=== PATIENT | male | born 1990 | race Caucasian/White ===

== ENCOUNTER 2017-11-15 23:25 | Inpatient (IN) | payer OTHER ==
[~2017-11-15] VITALS: Ht 167.6 cm; Wt 92.7 kg
[2017-11-15 23:28] VITALS: BP 140/90
--- NOTE | 2017-11-15 23:34 | NUR ---
PT TAKEN TO CHAIR D
--- NOTE | 2017-11-15 23:41 | NUR ---
26 Y/O M W/C/O EPIGASTRIC PAIN/NAUSEA/VOMITING X THIS AM. NO MED HX. PT STATES TOOK DICYCLOMINE 20MG X 2 AT 2000 TONIGHT FOR ABD PAIN BUT NO RELIEF.
[2017-11-16 00:28] LABS: BASOPHILS # (AUTO) 0.3 K/uL (0.00-0.22); BASOPHILS % (AUTO) 3.1 % (0.0-2.0); EOSINOPHILS # (AUTO) 0.1 K/uL (0-0.4); EOSINOPHILS % (AUTO) 1.3 % (0.0-4.0); HEMATOCRIT 39.7 % (36-52); HEMOGLOBIN 13.5 g/dL (12.0-18.0); LYMPHOCYTES # (AUTO) 1.3 K/uL (2.0-11.5); MEAN CORPUSCULAR HEMOGLOBIN 30 pg (27-31); MEAN CORPUSCULAR HGB CONC 34 g/dL (33-37); MEAN CORPUSCULAR VOLUME 87 fL (80-94); MONOCYTES # (AUTO) 0.5 K/uL (0.8-1.0); MONOCYTES % (AUTO) 4.6 % (1.7-9.3); NEUTROPHILS # (AUTO) 7.9 K/uL (1.8-7.7); PLATELET COUNT (AUTO) 234 K/uL (140-450); RED BLOOD CELL COUNT(AUTO) 4.56 MIL/uL (4.20-6.10); RED CELL DISTRIBUTION WIDTH 12.4 % (11.6-13.7); WHITE BLOOD COUNT (AUTO) 10.1 K/uL (4.8-10.8)
--- NOTE | 2017-11-16 00:36 | NUR ---
Dr. Fuller evaluating patient.
[2017-11-16 00:37] LABS: ANION GAP 15.5 (8-16); CARBON DIOXIDE 25.1 mmol/L (21-32); CREATININE 0.9 mg/dL (0.7-1.3); POTASSIUM 3.6 mmol/L (3.5-5.1)
[2017-11-16] MEDS ORDERED: DICYCLOMINE HCL LIQUID 10 MG/5 ML UDC PO ONE (00:40)
[2017-11-16] MEDS ORDERED: ALUMINUM HYD/MAG/SIMETHICONE 30 ML UDC PO ONE (00:40)
[2017-11-16] MEDS ORDERED: LIDOCAINE VISCOUS 2% 20 ML UDC PO ONE (00:40)
[2017-11-16] MEDS ORDERED: ONDANSETRON 4 MG ODT PO ONE (00:40)
[2017-11-16 00:43] LABS: ALBUMIN 4.2 g/dL (3.4-5.0); TOTAL BILIRUBIN 0.6 mg/dL (0.0-1.0)
--- NOTE | 2017-11-16 00:53 | NUR ---
PT MOVED TO BED 4
[2017-11-16] MEDS ORDERED: MORPHINE SULFATE 4 MG/ML SYR IVP ONE (01:05)
[2017-11-16] MEDS ORDERED: NACL 0.9% 1,000 ML IV ONE (01:05)
[2017-11-16] MEDS ORDERED: NACL 0.9% 1,000 ML IV SCH (01:18)
[2017-11-16] MEDS ORDERED: MORPHINE SULFATE 4 MG/ML SYR ONE (01:19)
[2017-11-16] MEDS ORDERED: MORPHINE SULFATE 4 MG/ML SYR IVP PRN (01:20)
[2017-11-16] MEDS ORDERED: ONDANSETRON 4 MG/2 ML VIAL IVP PRN (01:20)
[2017-11-16] MEDS ORDERED: MORPHINE SULFATE 2 MG/ML SYR IVP PRN (01:20)
[2017-11-16] MEDS ORDERED: ACETAMINOPHEN 325 MG TAB PO PRN (01:20)
[2017-11-16] MEDS ORDERED: BEN10 PO (01:23)
--- NOTE | 2017-11-16 01:46 | NUR ---
Patient will be admitted to care of DR DAWKINS. Admited to MS . Will go to room 122B. Belongings list completed. Report to FLIP PAGAN.
[2017-11-16 02:02] LABS: BARBITURATE, URINE NEG. ng/ml (NEG <=200); BENZODIAZEPINE, URINE NEG. ng/mL (NEG <=200); CANNABINOID, URINE NEG. ng/mL (NEG <=50); COCAINE, URINE NEG. ng/mL (NEG <=300); OPIATE, URINE NEG. ng/mL (NEG <=2000); PHENCYCLIDINE SCREEN,URINE NEG. ng/mL (NEG <=25)
--- NOTE | 2017-11-16 02:06 | NUR ---
ADMITTED PATIENT TO THE MED-SURG UNIT, PATIENT AWAKE ALERT ORIENTED X4, NO S/S OF DISTRESS NOTED, RESPIRATION EVEN AND UNLABORED, VITAL SIGNS STABLE, IV PATENT AND INTACT. PLAN OF CARE DISCUSSED, PATIENT VERBALIZED UNDERSTANDING, CALL LIGHT WITHIN REACH, SAFETY MEASURE ENSURED, WILL CONTINUE TO MONITOR.
[2017-11-16 02:34] VITALS: BP 121/54
--- NOTE | 2017-11-16 04:04 | NUR ---
PATIENT IS SLEEPING, NO S/S OF DISTRESS NOTED, RESPIRATION EVEN AND UNLABORED, CALL LIGHT WITHIN REACH, SAFETY MEASURE ENSURED, WILL CONTINUE TO MONITOR.
--- NOTE | 2017-11-16 06:41 | NUR ---
PATIENT HAS BEEN SCREENED AND CATEGORIZED LOW NUTRITION RISK. PATIENT WILL BE SEEN WITHIN 7 DAYS OF ADMISSION. 11/22/17 LIZETTE RODRIGEZ MS, RDN
--- NOTE | 2017-11-16 07:03 | NUR ---
ENDORSED PLAN OF CARE TO DAY SHIFT RN, PATIENT IS IN STABLE CONDITION. NO S/S OF DISTRESS.
--- NOTE | 2017-11-16 07:05 | NUR ---
RECEIVED REPORT FROM NIGHT RN. PT RESTING IN BED. AAOX4. NO S/S OF ACUTE DISTRESS. PT DENIES PAIN. IV SITE PATENT AND INTACT. CALL LIGHT WITHIN REACH. SAFETY MEASURES ENSURED. WILL CONTINUE TO MONITOR.
[2017-11-16 07:43] VITALS: BP 128/73
[2017-11-16] MEDS ORDERED: ENOXAPARIN 40 MG/0.4 ML SYR SUBQ SCH (09:00)
[2017-11-16] MEDS ORDERED: FAMOTIDINE 20 MG/2 ML VIAL IVP SCH (09:00)
[2017-11-16] MEDS ORDERED: PANT40EC PO (09:15)
--- NOTE | 2017-11-16 10:07 | NUR ---
PT SLEEPING IN BED. NO S/S OF ACUTE DISTRESS. WILL CONTINUE TO MONITOR.
--- NOTE | 2017-11-16 10:46 | NUR ---
CM NOTE INITIAL REVIEW FAXED TO [facility] [phone] [facility] # [phone]
--- NOTE | 2017-11-16 12:20 | NUR ---
DISCHARGE TO HOME WITH DC INSTRUCTION AND PRESCRIPTION GIVEN AND VERBALIZED UNDERSTANDING. IV REMOVED.
== END 2017-11-16 12:30 | disposition home or self-care (01) | DRG 282 ==
LOC: MED 23:25 → MTU 11-16 01:18
PROVIDERS: ADMIT Internal Medicine; ATTEND Internal Medicine
DX: K85.90 Acute pancreatitis without necrosis or infection, unspecified (principal); F10.10 Alcohol abuse, uncomplicated; K21.9 Gastro-esophageal reflux disease without esophagitis
CPT/HCPCS: 36415; 80053; 80305; 83690; 85025; 87081; 96374; 99285; G0482; J1650; J2270; J3490; J7030; S0119

== ENCOUNTER 2018-01-05 10:28 | Inpatient (IN) | payer OTHER ==
[~2018-01-05] VITALS: Ht 177.8 cm; Wt 90.3 kg
--- NOTE | 2018-01-05 00:30 | NUR ---
PT GIVEN ZOSYN PER ORDER RUNNING AT 100MLS PER HR. IV FLUSHED PT NO S/S OF INFILTRATION NOTED. 12 AM V/S T 97.9 P 77 R 18 B/P 108/42 02 97% ON RA. PT AROUSABLE TO VERBAL STIMULI HE DENIES ANY PAIN AT THIS TIME DRESSINGS INTACT RIGHT DRESSING HAS MINIMAL DRAINAGE NOTED. PT IS ABLE TO REPOSITION SELF AND DENIES PAIN AT THIS TIME.
[~2018-01-05 10:28] MED LIST: BEN10 PO; PANT40EC PO
[2018-01-05 10:36] VITALS: BP 143/75
--- NOTE | 2018-01-05 10:38 | NUR ---
PT TAKEN TO BED 7
--- NOTE | 2018-01-05 10:39 | NUR ---
Patient ambulated to bed 7. RN evaulating patient at bedside.
--- NOTE | 2018-01-05 10:40 | NUR ---
PATIENT PRESENTS TO ED WITH MID UPPER ABD PAIN X2 DAYS WITH N/V; HX PANCREATITIS . PATIENT STATES PAIN OF 10/10 AT THIS TIME; VSS; PATIENT POSITIONED FOR COMFORT; HOB ELEVATED; BEDRAILS UP X2; BED DOWN. ER MD MADE AWARE OF PT STATUS.
[2018-01-05] MEDS ORDERED: NACL 0.9% 1,000 ML IV ONE (10:45)
[2018-01-05] MEDS ORDERED: ONDANSETRON 4 MG/2 ML VIAL IVP ONE (10:45)
[2018-01-05] MEDS ORDERED: MORPHINE SULFATE 4 MG/ML SYR IVP ONE ×2 (10:45→12:45)
[2018-01-05 11:06] LABS: BASOPHILS % (AUTO) 0.2 % (0.0-2.0); EOSINOPHILS # (AUTO) 0.1 K/uL (0-0.4); EOSINOPHILS % (AUTO) 0.4 % (0.0-4.0); HEMATOCRIT 41.9 % (36-52); LYMPHOCYTES % (AUTO) 7.2 % (20.5-51.1); MEAN CORPUSCULAR HEMOGLOBIN 29 pg (27-31); MEAN CORPUSCULAR HGB CONC 33 g/dL (33-37); MEAN CORPUSCULAR VOLUME 86.2 fL (80-94); MONOCYTES # (AUTO) 0.7 K/uL (0.8-1.0); NEUTROPHILS # (AUTO) 12.6 K/uL (1.8-7.7); NEUTROPHILS % (AUTO) 87.2 % (42.2-75.2); PLATELET COUNT (AUTO) 222 K/uL (140-450); RED BLOOD CELL COUNT(AUTO) 4.86 MIL/uL (4.20-6.10); RED CELL DISTRIBUTION WIDTH 12.8 % (11.6-13.7); WHITE BLOOD COUNT (AUTO) 14.4 K/uL (4.8-10.8)
[2018-01-05 11:15] LABS: ANION GAP 12.4 (8-16); CARBON DIOXIDE 25.9 mmol/L (21-32); CREATININE 0.8 mg/dL (0.7-1.3); POTASSIUM 3.3 mmol/L (3.5-5.1)
[2018-01-05 11:20] LABS: ALBUMIN 4.4 g/dL (3.4-5.0); TOTAL BILIRUBIN 1.2 mg/dL (0.0-1.0)
[2018-01-05] MEDS ORDERED: MORPHINE SULFATE 4 MG/ML SYR ONE (12:42)
--- NOTE | 2018-01-05 13:21 | NUR ---
Patient taken to CT scan via gurney by [employer].
[2018-01-05] MEDS ORDERED: POTASSIUM CHL 20 MEQ/D5-1/2NS 1,000 ML IV ONE (16:25)
[2018-01-05] MEDS ORDERED: DEXT 5% / NACL 0.45% 1,000 ML IV SCH (16:36)
[2018-01-05] MEDS ORDERED: ONDANSETRON 4 MG/2 ML VIAL IVP PRN ×2 (16:40→18:40)
[2018-01-05] MEDS ORDERED: ACETAMINOPHEN 325 MG TAB PO PRN ×2 (16:40→19:45)
[2018-01-05] MEDS ORDERED: MORPHINE SULFATE 4 MG/ML SYR IVP PRN ×3 (16:40→19:45)
[2018-01-05 17:40] VITALS: BP 112/61
--- NOTE | 2018-01-05 17:40 | NUR ---
RECEIVED BEDSIDE REPORT FROM ER NURSE. PATIENT IS AWAKE, ALERT AND ORIENTEDX4. NO SIGNS OF RESP DISTRESS ON ROOM AIR. NO COMPLAINTS OF PAIN AT THIS TIME. VITALS ARE ALL WITHIN THE NORMAL LIMITS. L AC 20G INFUSING KCL AT 100ML/HR. IV IS CLEAN, DRY AND INTACT. NO COMPLAINTS AT THIS TIME. ALL ADMISSION QUESTIONS AND PAPERWORK SIGNED.
--- NOTE | 2018-01-05 17:40 | NUR ---
Patient will be admitted to care of DR. BAÑUELOS. Admited to MED/SURG. Will go to [id number]. Belongings list completed. Report to ANDER RN AT BEDSIDE, VSS.
--- NOTE | 2018-01-05 18:00 | NUR ---
GAVE BEDSIDE REPORT TO OR NURSES. NO CONSENT SIGNED BUT DR MCCRAY WILL TELL HIM THE RISKS AND BENEFITS AND ASSESS IF PATIENT WANTS WANTS SURGERY. WILL CONTINUE TO MONITOR PATIENT WHEN HE COMES BACK OR GIVE REPORT TO IT SENIOR ANALYST NURSE.
[2018-01-05] MEDS ORDERED: PIPERACILLIN/TAZOBACTAM 3.375 GM VIAL IV ONE ×2 (18:05→18:39)
[2018-01-05] MEDS ORDERED: ONDANSETRON 4 MG/2 ML VIAL ONE (18:05)
[2018-01-05] MEDS ORDERED: SUCCINYLCHOLINE CHLORIDE 200 MG/10 ML VIAL IVP ONE (18:05)
[2018-01-05] MEDS ORDERED: SEVOFLURANE 250 ML BTL INH ONE (18:05)
[2018-01-05] MEDS ORDERED: KETOROLAC 30 MG/ML VIAL ONE (18:05)
[2018-01-05] MEDS ORDERED: ROCURONIUM 50 MG/5 ML VIAL IV ONE (18:05)
[2018-01-05] MEDS ORDERED: PROPOFOL 200 MG/20 ML VIAL IV ONE (18:05)
[2018-01-05] MEDS ORDERED: DEXAMETHASONE 4 MG/ML VIAL ONE (18:05)
[2018-01-05] MEDS ORDERED: BUPIVACAINE-MPF 0.25% 30 ML VIAL INJ ONE (18:14)
[2018-01-05] MEDS ORDERED: fentaNYL 0.05 MG/ML VIAL ONE (18:16)
[2018-01-05] MEDS ORDERED: MIDAZOLAM 2 MG/2 ML VIAL ONE (18:16)
[2018-01-05] MEDS ORDERED: MEPERIDINE 50 MG/ML SYR ONE (18:16)
[2018-01-05] MEDS ORDERED: MEPERIDINE 25 MG/ML SYR IVP PRN (18:40)
[2018-01-05] MEDS ORDERED: diphenhydrAMINE 50 MG/ML VIAL IVP PRN (18:40)
[2018-01-05] MEDS ORDERED: HYDROmorphone 1 MG/ML AMP IVP PRN ×2 (18:40→19:45)
--- NOTE | 2018-01-05 19:20 | NUR ---
GAVE BEDSIDE REPORT TO APPLICATION INFRASTRUCTURE ENGINEER NURSE. PATIENT IS CURRENTLY IN THE OR.
[2018-01-05] MEDS: NACL 0.9% 1,000 ML IV SCH (19:41)
[2018-01-05] MEDS ORDERED: HYDROcodone/APAP 5/325 MG 1 TAB TAB PO PRN (19:45)
[2018-01-05] MEDS ORDERED: ONDANSETRON 4 MG/2 ML VIAL IV PRN (19:45)
[2018-01-05] MEDS ORDERED: MORPHINE SULFATE 4 MG/ML SYR IV PRN (19:45)
[2018-01-05 20:15] VITALS: BP 115/62
[2018-01-05] MEDS: LACTATED RINGERS 1,000 ML IV SCH (20:15)
--- NOTE | 2018-01-05 20:15 | NUR ---
PT RETURNED TO FLOOR VIA GURNEY. PT SLEEPING QUIETLY BUT AROUSABLE TO NAME, AND AOX 4. IV ZOSYN RUNNING ORDERED WITH 75 MLS LEFT IN BAG. PT HAS 20g IN LEFT ANTECUBUTAL RUNNING PT NO S/S OF INFILTRATION. PT HAS 4 AREAS OF WOUND INSICION FORM SURGERY COVERED WITH DRY DRESSING, NOT TO BE BE CHANGED AT THIS TIME, SURGEON WILL VISIT PT TOMORROW AND INSPECT PT WOUNDS. AREA AROUND WOUNDS ARE DRY, WITH NO DRAINAGE NOTED. V/S AT THIS TIME: t 98.1 p 77 r 16 B/P 115/62 O2 98% ON ROOM AIR. PT HAD NO COMPLAINTS OF PAIN.
[2018-01-05 20:30] VITALS: BP 117/68
[2018-01-05 20:45] VITALS: BP 119/71
--- NOTE | 2018-01-05 22:00 | NUR ---
PT SLEEPING QUIETLY L AC WITH 20G PATENT NO S/S OF INFILTRATION NOTED. V/S CHECKED Q 15 MINUTES PT HAS HAD STABLE VITALS, NACL RUNNING ORDERED, SIDE RAILS UP X2 BED IN LOW POSITION.
--- NOTE | 2018-01-05 23:00 | NUR ---
PT AROUSABLE TO NAME , PT DENIES PAIN AT THIS TIME, URINAL OFFERED BUT PT DECLINED. PT WAS ASKED IF HE HAD PASSED ANY GAS AND HE SAID NOT YET. PT EDUCATION GIVEN REGARDING SURGERY.
[2018-01-06] VITALS: BP 108/42
[2018-01-06] MEDS ORDERED: PIPERACILLIN/TAZOBACTAM 3.375 GM VIAL IV ONE ×2 (00:12→06:01)
[2018-01-06] MEDS: PIPER/TAZO 3.375GM/D5W PREMIX 50 ML IV SCH ×2 (00:30→06:18)
[2018-01-06] MEDS: LACTATED RINGERS 1,000 ML IV SCH (02:57)
--- NOTE | 2018-01-06 03:30 | NUR ---
PT AROUSABLE TO VERBAL STIMULI, DRESSINGS INTACT V/S STABLE AT THIS TIME. PT C/O OF 4/10 PAIN. PT GIVEN PRN MORPHINE 0.5MLS. POSITIVE EFFECT NOTED.
--- NOTE | 2018-01-06 05:00 | NUR ---
PT OFFERED URINAL AND PLACED NEXT TO SIDE RAIL WITHIN REACH, EMT OFFERED TO WALK PT TO BATHROOM, BUT PT DECLINED AT THIS TIME. PT ENCOURAGED TO USE URINAL AND TO INFORM THE NURSE WHEN HE DOES URINATE AND PASS GAS
[2018-01-06] MEDS: NACL 0.9% 1,000 ML IV SCH (06:18)
--- NOTE | 2018-01-06 06:50 | NUR ---
PT AMBULATED TO RESTROOM AND VOIDED, PT STATES FEELING OF CONSTIPATION. EDUCATED PT ON PREVENTING CONSTIPATION, PT VERBALIZED UNDERSTANDING. PT IN STABLE CONDITION BACK IN BED.
--- NOTE | 2018-01-06 07:30 | NUR ---
RECEIVED REPORT FROM NIGHTSHIFT NURSE AT BEDSIDE. PATIENT PRESENTS ON HIS BED SITTING ON THE SIDE. PATIENT ALERT AND ORIENTED X4. PATIENT ABLE TO AMBULATE AT THIS TIME. PATIENT HAS AN IV NOTED ON HIS LEFT AC 20 G RUNNING NACL AT 100 ML/HR. PATIENT HAS 2 DRY DRESSINGS ON HIS STOMACH AND 1 WITH MINIMAL SATURATION. AWAITING DOCTOR TO REMOVE THE BANDAGES. PATIENT DOES NOT PRESENT WITH PAIN AT THIS TIME. CALL LIGHT WITHIN REACH OF PATIENT. WILL CONTINUE TO MONITOR PATIENT.
--- NOTE | 2018-01-06 07:31 | NUR ---
ENDORSED PT TO DAY SHIFT RN OSCAR FOR CONTINUITY OF CARE. PT IN STABLE CONDITION.
[2018-01-06 08:00] VITALS: BP 110/55
[2018-01-06 08:00] LABS: ALBUMIN 3.3 g/dL (3.4-5.0); ANION GAP 12.1 (8-16); CARBON DIOXIDE 25.8 mmol/L (21-32); CREATININE 0.7 mg/dL (0.7-1.3); POTASSIUM 3.9 mmol/L (3.5-5.1); TOTAL BILIRUBIN 2.2 mg/dL (0.0-1.0)
[2018-01-06 08:05] LABS: HEMATOCRIT 33.6 % (36-52); HEMOGLOBIN 11.4 g/dL (12.0-18.0); LYMPHOCYTES # (AUTO) 0.9 K/uL (2.0-11.5); LYMPHOCYTES % (AUTO) 8.1 % (20.5-51.1); MEAN CORPUSCULAR HEMOGLOBIN 30 pg (27-31); MEAN CORPUSCULAR HGB CONC 34 g/dL (33-37); MEAN CORPUSCULAR VOLUME 86.9 fL (80-94); MONOCYTES # (AUTO) 0.7 K/uL (0.8-1.0); MONOCYTES % (AUTO) 6.5 % (1.7-9.3); NEUTROPHILS % (AUTO) 85.4 % (42.2-75.2); PLATELET COUNT (AUTO) 218 K/uL (140-450); RED BLOOD CELL COUNT(AUTO) 3.86 MIL/uL (4.20-6.10); RED CELL DISTRIBUTION WIDTH 12.9 % (11.6-13.7); WHITE BLOOD COUNT (AUTO) 10.5 K/uL (4.8-10.8)
--- NOTE | 2018-01-06 08:22 | NUR ---
DR. BAÑUELOS SAW PATIENT. UPDATED ON PATIENT'S CONDITION. NO NEW ORDERS FOR PATIENT AT THIS TIME. AWAITING CLEARANCE FROM DR. MCCRAY AT THIS TIME. NO COMPLAINTS OF PAIN FROM PATIENT. RESPIRATORY SYSTEM WITHIN NORMAL LIMITS. WILL CONTINUE TO MONITOR PATIENT.
--- NOTE | 2018-01-06 11:15 | NUR ---
PATIENT ASLEEP AT THIS TIME. NO COMPLAINTS OF PAIN. WILL CONTINUE TO MONITOR PATIENT.
[2018-01-06] MEDS ORDERED: ACET-9525 PO (11:55)
--- NOTE | 2018-01-06 12:03 | NUR ---
PATIENT FAMILY AT BEDSIDE. ENCOURAGED PATIENT TO WALK AROUND AT THIS TIME. PATIENT AGREED. WILL CONTINUE TO MONITOR PATIENT.
[2018-01-06 13:23] LABS: BASOPHILS % (AUTO) 0.2 % (0.0-2.0); EOSINOPHILS % (AUTO) 0.2 % (0.0-4.0); HEMATOCRIT 30.1 % (36-52); HEMOGLOBIN 10.1 g/dL (12.0-18.0); LYMPHOCYTES # (AUTO) 1.2 K/uL (2.0-11.5); LYMPHOCYTES % (AUTO) 15.1 % (20.5-51.1); MEAN CORPUSCULAR HEMOGLOBIN 29 pg (27-31); MEAN CORPUSCULAR HGB CONC 34 g/dL (33-37); MEAN CORPUSCULAR VOLUME 86.7 fL (80-94); MONOCYTES # (AUTO) 0.6 K/uL (0.8-1.0); NEUTROPHILS # (AUTO) 6.4 K/uL (1.8-7.7); NEUTROPHILS % (AUTO) 77.5 % (42.2-75.2); PLATELET COUNT (AUTO) 188 K/uL (140-450); RED BLOOD CELL COUNT(AUTO) 3.48 MIL/uL (4.20-6.10); WHITE BLOOD COUNT (AUTO) 8.3 K/uL (4.8-10.8)
--- NOTE | 2018-01-06 13:30 | NUR ---
PATIENT FAMILY MEMBERS AT BEDSIDE. NO COMPLAINTS OF PAIN AT THIS TIME. WILL CONTINUE TO MONITOR PATIENT.
--- NOTE | 2018-01-06 15:11 | NUR ---
SPOKE TO DR. MCCRAY REGARDING PATIENT. INFORMED OF PATIENT UPDATES. DR. MCCRAY CLEARED PATIENT TO GO HOME WITHOUT ANTIBIOTICS.
--- NOTE | 2018-01-06 15:45 | NUR ---
RECEIVED ORDER FROM DR. MCCRAY TO REMOVE PATIENT'S BANDAGES OFF ABDOMEN. REMOVED PATIENT'S BANDAGES AND APPLIED NEW BANDAGES. PICTURES TAKEN.
[2018-01-06 16:02] VITALS: BP 121/52
--- NOTE | 2018-01-06 17:00 | NUR ---
PATIENT UNDERSTOOD AND SIGNED ALL DISCHARGE INSTRUCTIONS. PATIENT AWARE OF ALL PRESCRIPTIONS. PATIENT FAMILY MEMBERS AT BEDSIDE. INSTRUCTED PATIENT ON TEACHINGS REGARDING HIS SURGERY. PATIENT VERBALIZED UNDERSTANDING. REMOVED PATIENT'S IDENTIFICATION BANDS AND REMOVED PATIENT'S IV LINE WITH CATHETER STILL INTACT. PATIENT GATHERED ALL BELONGINGS AND LEFT IN STABLE CONDITION.
== END 2018-01-06 17:00 | disposition home or self-care (01) | DRG 225 ==
LOC: MED 10:28 → MTU 16:47
PROVIDERS: ADMIT Hospitalist; ATTEND Hospitalist
PROC: 0DTJ4ZZ Resection of Appendix, Percutaneous Endoscopic Approach (ICD-10-PCS; principal; 2018-01-05 18:45)
DX: K35.80 Unspecified acute appendicitis (principal); K86.0 Alcohol-induced chronic pancreatitis; E87.5 Hyperkalemia; F41.9 Anxiety disorder, unspecified; K21.9 Gastro-esophageal reflux disease without esophagitis; F32.9 Major depressive disorder, single episode, unspecified; G47.00 Insomnia, unspecified; Z82.49 Family history of ischemic heart disease and other diseases of the circulatory system; Z83.2 Family history of diseases of the blood and blood-forming organs and certain disorders involving the immune mechanism; Z87.891 Personal history of nicotine dependence; Z86.59 Personal history of other mental and behavioral disorders
CPT/HCPCS: 36415; 80053; 82374; 83690; 85025; 96374; 99285; J0330; J1100; J1885; J2175; J2250; J2270; J2405; J2543; J2704; J3010; J3490; J7030; J7060; Q9967

== ENCOUNTER 2020-04-11 08:38 | Emergency (ER) | payer SELFPAY ==
[~2020-04-11] VITALS: Ht 180.3 cm; Wt 90.7 kg
[~2020-04-11 08:38] MED LIST changes: +ACET-9525 PO; -BEN10 PO
[2020-04-11 08:42] VITALS: BP 153/89
--- NOTE | 2020-04-11 08:46 | NUR ---
PATIENT AMBULATED TO BED 11.
--- NOTE | 2020-04-11 08:50 | NUR ---
PT C/O PROGRESSIVELY WORSENED CRAMPING PAIN ON POSTERIOR THIGH RADIATING TO LEFT POSTERIOR CALF FOR ONE WEEK. PT STATES WALKING AROUND ALLEVIATED THE PAIN, BUT STARTING THIS MORNING THE PAIN BECAME CONSISTENT. DENIES TRAUMA OR INJURY TO HIS LEGS. 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 TENDERNESS ON LEFT POSTERIOR THIGH AND CALF TO PALPATION. NO DISCOLORATION OR EDEMA ON LEFT LEG. AAOX4 WITH EVEN AND STEADY GAIT; LUNGS CLEAR BL; HR EVEN AND REGULAR; PT DENIES ANY FEVER, CP, SOB, OR COUGH AT THIS TIME; PATIENT STATES PAIN OF 10/10 AT THIS TIME; VSS; PATIENT POSITIONED FOR COMFORT; HOB ELEVATED; BEDRAILS UP X1; BED DOWN. ER MD MADE AWARE OF PT STATUS.
--- NOTE | 2020-04-11 08:50 | NUR ---
Patient being evaluated by DR WILSNO at bedside.
[2020-04-11] MEDS ORDERED: IBUPROFEN 400 MG TAB PO STA (08:54)
[2020-04-11] MEDS ORDERED: traMADol 50 MG TAB PO STA (08:54)
--- NOTE | 2020-04-11 09:14 | NUR ---
US IS AT BEDSIDE.
[2020-04-11 11:15] VITALS: BP 122/71
--- NOTE | 2020-04-11 11:15 | NUR ---
Patient discharged with v/s stable. Written and verbal after care instructions given and explained. Patient alert, oriented and verbalized understanding of instructions. Ambulatory with steady gait. All questions addressed prior to discharge. ID band removed. Patient advised to follow up with PMD. Rx of Ibuprofen and Tramadol given. Patient educated on indication of medication including possible reaction and side effects. Opportunity to ask questions provided and answered.
== END 2020-04-11 11:15 | disposition home or self-care (01) ==
LOC: MED 08:38
DX: M79.662 Pain in left lower leg (principal); Z79.899 Other long term (current) drug therapy
CPT/HCPCS: 93971; 99284; Q0092

== ENCOUNTER 2020-06-25 11:08 | Emergency (ER) | payer SELFPAY ==
[~2020-06-25] VITALS: Ht 177.8 cm; Wt 93.0 kg
[2020-06-25 11:19] VITALS: BP 160/101
--- NOTE | 2020-06-25 11:23 | NUR ---
TENT1
--- NOTE | 2020-06-25 11:30 | NUR ---
29/M BIB SELF C/O SOB , RUNNY NOSE X 1 WEEK. PT HAD COVID TESTED + 4 DAYS AGO. O2 SAT 98%. MED HX: APPENDECTOMY. DENIES N/V/D; SKIN IS PINK/WARM/DRY; AAOX4 WITH EVEN AND STEADY GAIT; LUNGS CLEAR BL; HR EVEN AND REGULAR; PT DENIES ANY FEVER, CP OR COUGH AT THIS TIME; PATIENT STATES PAIN OF 0/10 AT THIS TIME
[2020-06-25 13:45] VITALS: BP 131/77
--- NOTE | 2020-06-25 13:45 | NUR ---
Patient discharged with v/s stable. Written and verbal after care instructions given and explained. Patient verbalized understanding. Ambulatory with steady gait. All questions addressed prior to discharge. Advised to follow up with PMD.
== END 2020-06-25 13:45 | disposition home or self-care (01) ==
LOC: MED 11:08
DX: U07.1 COVID-19 (principal); R06.02 Shortness of breath; F12.90 Cannabis use, unspecified, uncomplicated; Z79.899 Other long term (current) drug therapy; Z90.49 Acquired absence of other specified parts of digestive tract
CPT/HCPCS: 71045; 99283